=== PATIENT | male | born 1965 | race Caucasian/White ===

== ENCOUNTER 2018-11-01 06:38 | Observation (INO) | payer BC ==
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
[~2018-11-01 06:38] MED LIST: Buffered Lidocaine 1% SYRIN* 1 ML/SYRINGE INTRADERM ONE; Famotidine IV* 10 MG/ML 2 ML (20 mg) IV ONE; Gabapentin CAP(*) 300 MG PO ONE; Lactated Ringers 1000 ML Bag* 1,000 ML IV SCH; celeCOXIB CAP* 200 MG PO ONE
[2018-11-01] MEDS ORDERED: Dexamethasone IV* 4 MG/ML 1 ML (4 MG) ONE (06:58)
[2018-11-01] MEDS ORDERED: Lidocaine 2% MPF* 2 ML VIAL ONE (06:58)
[2018-11-01] MEDS ORDERED: Propofol* 10 MG/ML 20 ML BTL ONE (06:58)
[2018-11-01] MEDS ORDERED: Ondansetron INJ* 2 MG/ML VIAL ONE (06:58)
[2018-11-01] MEDS ORDERED: Midazolam* 1 MG/ML 10 ML VIAL (10 MG) ONE (06:58)
[2018-11-01] MEDS ORDERED: ROPIVACAINE 5 MG/ML 30 ML BTL (0.5%) ONE (06:58)
[2018-11-01] MEDS ORDERED: Sodium Chloride 0.9%* 20 ML ONE (06:58)
[2018-11-01] MEDS ORDERED: fentaNYL* 50 MCG/ML 2 ML VIAL (100 MCG VIAL) ONE ×2 (06:58→10:00)
[2018-11-01] MEDS ORDERED: KETAMINE HCL* 50 MG/ML 10 ML VIAL ONE (06:58)
[2018-11-01] MEDS ORDERED: celeCOXIB CAP* 200 MG ONE (06:59)
[2018-11-01] MEDS ORDERED: Famotidine IV* 10 MG/ML 2 ML (20 mg) ONE (06:59)
[2018-11-01] MEDS ORDERED: Buffered Lidocaine 1% SYRIN* 1 ML/SYRINGE INTRADERM ONE (06:59)
[2018-11-01] MEDS ORDERED: ceFAZolin 2 GM in NS PREMIX(*) 2 GM/100 ML BAG IVPB ONE (06:59)
[2018-11-01] MEDS ORDERED: Gabapentin CAP(*) 300 MG ONE (06:59)
[2018-11-01] MEDS ORDERED: Tranexamic Acid 1,000 MG in NS 0.9% 50 ML IV ONE (08:00)
[2018-11-01] MEDS ORDERED: Bupivacaine 0.5%* 50 ML VIAL ONE (09:17)
[2018-11-01] MEDS ORDERED: Lidocaine 2% PF * 5 ML VIAL ONE (10:02)
[2018-11-01] MEDS ORDERED: Propofol* 500 MG/50 ML BTL ONE (10:02)
[2018-11-01] MEDS ORDERED: fentaNYL* 50 MCG/ML 5 ML VIAL (250 MCG VIAL) ONE (10:12)
[2018-11-01] MEDS ORDERED: Acetaminophen IV 1GM/100ML * 100 ML ONE (10:49)
[2018-11-01] MEDS ORDERED: Ketorolac INJ* 30 MG/ML 1 ML VIAL ONE (10:57)
[2018-11-01] MEDS ORDERED: EPHEDrine (Pressors)* 50 MG/ML VIAL ONE (11:32)
[2018-11-01] MEDS ORDERED: HYDROmorphone INJ1* 1 MG/ML SYRINGE ONE (11:33)
[2018-11-01] MEDS ORDERED: diPHENhydraMINE IV* 50 MG/ML 1 ml VIAL (BENADRYL) IV PRN (12:33)
[2018-11-01] MEDS ORDERED: oxyCODONE/Acetamin 5/325 MG* TAB PO PRN (12:33)
[2018-11-01] MEDS ORDERED: Morphine 4 MG/ML VIAL (1 ml) 4 MG/ML VIAL IV PRN (12:33)
[2018-11-01] MEDS ORDERED: Magnesium Hydroxide LIQ* 30 ML UDC PO PRN (12:33)
[2018-11-01] MEDS ORDERED: Acetaminophen TAB* 325 MG PO PRN (12:33)
[2018-11-01] MEDS ORDERED: Bisacodyl SUPP* 10 MG SUPP PR PRN (12:33)
[2018-11-01] MEDS ORDERED: Ondansetron INJ* 2 MG/ML VIAL IV PRN ×2 (12:33→12:36)
[2018-11-01] MEDS ORDERED: fentaNYL* 50 MCG/ML 2 ML VIAL (100 MCG VIAL) IV PRN (12:36)
[2018-11-01] MEDS ORDERED: HYDROmorphone INJ1* 1 MG/ML SYRINGE IV PRN (12:36)
[2018-11-01] MEDS ORDERED: Naloxone* 0.4 MG/ML 1 ML VIAL IV PRN (12:36)
[2018-11-01] MEDS ORDERED: oxyCODONE/Acetamin 5/325 MG* TAB ONE (14:21)
[2018-11-01] MEDS: oxyCODONE/Acetamin 5/325 MG* TAB PO PRN ×2 (14:24→20:21)
[2018-11-01] MEDS: Lactated Ringers 1000 ML Bag* 1,000 ML IV SCH (14:28)
--- NOTE | 2018-11-01 15:03 | PN ---
Progress Note - Progress Note Date of Service: 11/01/18 Note: Pt seen at bedside POD [address] Cardenas. Right knee pain is present but described as sore. Denies CP, SOB, dizziness, nausea. No hx DVT. Dressing CDI, thigh soft, DF/PF intact, Dp2+, sensation intact to light touch distally. On eliquis for DVT prophy.
[2018-11-01] MEDS: oxyCODONE TAB* 5 MG TAB PO PRN ×2 (16:56→22:14)
--- NOTE | 2018-11-01 17:28 | OP ---
Operative Report - Blank - Operative Report Date of Operation: 11/01/18 Note: SONDRA PINA 1965 Date of Surgery: 11/01/18 Jodi Cardenas MD Sewing Machine Operator Semiautomatic: Tor PRUITT did help throughout the procedure with preparation of the knee, wound retraction, manipulation of the knee, and wound closure. Anesthesiologist: Keon Gonzalez MD Anesthesia Type: Spinal Preoperative Diagnosis: Right severe degenerative osteoarthritis of the knee Postoperative Diagnosis: As above Procedure Performed: Right Total Knee Arthroplasty with Navio Robotic System Tourniquet time: 71 minutes Complications: None Specimen: Bone and cartilage from the right knee joint sent to pathology. Hardware Used: Cemented Bailey and Nephew total knee hardware was used - For the femur a size 6 right oxinium legion posterior stabilized femoral component, for the tibia a size 6 right singh II tibial baseplate, for the insert a size 9mm 5-6 posterior stabilized articular polyethylene insert, and for the patella a size 35 3-peg all poly patella. Brief History/Indication: SONDRA PINA was known in clinic and had a history of severe right knee pain and swelling. He failed conservative treatment with anti-inflammatories, pain pills, intra-articular injections and physical therapy. He elected to undergo right total knee arthroplasty due to continued pain and decreased quality of life. Radiographs showed severe end stage osteoarthritis of the knee with bone on bone contact. Informed consent was obtained from the patient. He understood the risks of surgery included but were not limited to: bleeding, infection, damage to nearby structures, intraoperative fracture, nerve palsy, failure of the hardware, early loosening, knee stiffness or loss of motion, anesthesia complications, stroke, heart attack , blood clot and . He wished to proceed. Intra-Operative Findings: Intraoperatively the patient was noted to have severe loss of cartilage in all 3 compartments of the knee. Description of the Procedure: SONDRA PINA was identified in the preanesthesia unit. His right knee was marked as the correct operative side. Informed consent was signed and placed in the chart. The patient was taken to the operating room and placed under anesthesia without complication. A brown catheter was placed. A tourniquet was placed on the right thigh. The right lower extremity was prepped and draped in the usual sterile fashion. Preoperative time-out was made to correctly identify the patient, side and site. Appropriate intraoperative antibiotics were given within one hour of incision. Tourniquet was inflated. A midline incision was made and carried sharply down to the extensor mechanism. A new 10 blade was used to make a standard medial parapatellar arthrotomy. The patella was subluxed laterally. Electrocautery was used to dissect soft tissue off the superomedial tibia to the midsagittal plane. The knee was flexed up. The anterior horn of the lateral meniscus and the ACL/PCL were sharply incised. A reference screw was placed in the tibia and femur medially. A drill was used to place two pins in the femur and two pins in the tibia. The navio arrays were then securely fastened to the pins. Reference points on the knee were obtained using the prompts from the navio system. The femur and tibia were both planned at size 6. The PlayyOn robotic marc was used to remove the distal femoral bone. The external rotation was set based on the navio planning. The size 6 multi- cutting jig was pinned on the distal femur. The oscillating saw was used to make the appropriate 4 chamfer cuts. The extramedullary tibial cutting guide was pinned on the proximal tibia with guidance from the navio robotic system. The preplanned cut was prepared for and the oscillating saw was used to make the proximal tibial cut perpendicular to the mechanical axis of the tibia. The bone was carefully removed. The knee was brought out into full extension. The spacer block was placed and had excellent fit with the knee in full extension. The medial and lateral ligaments were well balanced. The flexion and extension gaps were well balanced. The knee was flexed up. Lamina philanthropy officer was placed both medially and laterally. Any remaining meniscus was removed with electrocautery. Curved osteotome was used to remove any posterior osteophytes. The tibial tray and drop pj were placed and confirmed a satisfactory tibial cut. The size 6 right femoral trial was impacted onto the distal femur. This trial had excellent fit and stability. The box for the posterior stabilized implant was prepared using a box cut osteotome and a reamer. Next a tibial tray trial and 9 mm insert trial was placed. The knee was taken through a range of motion and had full extension to 130 degrees of flexion. Patellofemoral tracking was satisfactory. The patella was inverted and sized to a size 35. Three peg holes were drilled through the size 35 drill guide. The trial patella was placed and the knee was taken through a range of motion. There was satisfactory patellofemoral tracking. Final range of motion was assessed and the navio screws and pins were removed. All trials were removed. The tibia was subluxed anteriorly and sized to a size 6. The proximal tibial was prepared with a size 6 keel punch. All bony cut surfaces were irrigated with sterile saline and dried. Final implants were cemented into place starting with the tibia, followed by the femur, and last the patella. A 9 mm insert trial was placed and the knee was brought into full extension. Tourniquet was turned down and the knee was copiously irrigated with sterile saline. Electrocautery was used to obtain meticulous hemostasis. Once the cement had fully cured, the insert trial was removed. Any excess cement was removed from around the hardware and capsule. Final insert chosen was a 9 mm posterior stabilized Singh II articular insert size 5-6. Stability of the insert was checked and noted to be stable. The extensor mechanism was closed using number 1 vicryls. The rest of the incision was closed in a layered fashion using 0 and 2-0 vicryls. The skin was closed using 3-0 nylon suture. Sterile xeroform, 4x4s and webril were used to cover the incision. Joaquin wrap and cold pack were used to cover the dressings. The patients anesthesia was reversed without difficulty. He was taken to the PACU in stable condition. Intended weight-bearing will be as tolerated.
[2018-11-01] MEDS: ceFAZolin 1 GM ADVAN(*) 1 GM in NS 0.9% 50 ML* 50 ML IVPB SCH (18:08)
[2018-11-01] MEDS: Cyclobenzaprine TAB* 10 MG PO PRN (18:11)
[2018-11-01] MEDS: Magnesium Hydroxide LIQ* 30 ML UDC PO SCH (20:21)
[2018-11-01] MEDS: Docusate CAP* 100 MG PO SCH (20:21)
[2018-11-01] MEDS ORDERED: Sertraline* 100 MG TAB PO SCH (21:00)
[2018-11-01] MEDS ORDERED: Apixaban* 5 MG TAB PO SCH (21:00)
[2018-11-01] MEDS ORDERED: amLODIPine TAB* 5 MG PO SCH (21:00)
[2018-11-02] MEDS: Lactated Ringers 1000 ML Bag* 1,000 ML IV SCH (00:36)
[2018-11-02] MEDS: oxyCODONE/Acetamin 5/325 MG* TAB PO PRN ×3 (02:16→14:42)
[2018-11-02] MEDS: ceFAZolin 1 GM ADVAN(*) 1 GM in NS 0.9% 50 ML* 50 ML IVPB SCH ×2 (02:17→09:40)
[2018-11-02 05:42] LABS: Hematocrit 40 % (42-52); Hemoglobin 13.7 g/dL (14.0-18.0); Mean Platelet Volume 8.5 fL (7.4-10.4); Platelet Count 139 10^3/uL (150-450)
[2018-11-02 05:55] LABS: BUN/Creatinine Ratio 15.3 (8-20); Calcium 8.6 mg/dL (8.6-10.3); EGFR African American 138.2 (>60); EGFR Non-African American 114.2 (>60); Potassium 3.9 mmol/L (3.5-5.0)
[2018-11-02] MEDS: oxyCODONE TAB* 5 MG TAB PO PRN ×2 (06:49→11:39)
[2018-11-02] MEDS: Docusate CAP* 100 MG PO SCH (07:57)
[2018-11-02] MEDS: Cyclobenzaprine TAB* 10 MG PO PRN (07:57)
[2018-11-02] MEDS: Magnesium Hydroxide LIQ* 30 ML UDC PO SCH (07:59)
[2018-11-02] MEDS ORDERED: Vitamin THERAPEUTIC TAB PO SCH (09:00)
[2018-11-02] MEDS ORDERED: Apixaban* 5 MG TAB PO SCH (09:00)
--- NOTE | 2018-11-02 10:06 | PN ---
Progress Note - Progress Note Date of Service: 11/02/18 SOAP: Subjective: []Pt seen and examined at bedside. He is feeling very well, pain is well controlled. Denies CP, SOB, dizziness, nausea. Desires DC home today, he has already done stairs Objective: []Gen: Appears well, NAD RLE: Right knee dressing CDI, thigh soft, DF/PF intact, DP2+, sensation intact to light touch distally. Calves supple and nontender without erythema, edema or palpable cords Assessment: []POD 1 sp RTK Plan: []WBAT PT/OT eliquis 2.5 mg po BID x 30 days post op Change dressing before anticipated DC home today Vital Signs Temp 97.7 F 11/02/18 07:30 Pulse 56 11/02/18 07:30 Resp 16 11/02/18 09:40 BP 110/62 11/02/18 07:30 Pulse Ox 99 11/02/18 07:30 Intake & Output 11/01/18 11/02/18 11/02/18 18:59 06:59 18:59 Intake Total 2490 2260 60 Output Total 2125 1650 Balance 365 610 60 Weight 174 lb Intake: IV Fluids 2200 990 LR 2200 990 IVPB 110 60 ABX - CEFAZOLIN 110 60 Oral 290 1160 Output: Byrd 2125 1650 Laboratory Last Values Hgb 13.7 g/dL (14.0-18.0) L 11/02/18 05:29 Hct 40 % (42-52) L 11/02/18 05:29 Plt Count 139 10^3/uL (150-450) L 11/02/18 05:29 MPV 8.5 fL (7.4-10.4) 11/02/18 05:29 Sodium 140 mmol/L (135-145) 11/02/18 05:28 Potassium 3.9 mmol/L (3.5-5.0) 11/02/18 05:28 Chloride 106 mmol/L (101-111) 11/02/18 05:28 Carbon Dioxide 31 mmol/L (22-32) 11/02/18 05:28 Anion Gap 3 mmol/L (2-11) 11/02/18 05:28 BUN 11 mg/dL (6-24) 11/02/18 05:28 Creatinine 0.72 mg/dL (0.67-1.17) 11/02/18 05:28 Est GFR ( Amer) 138.2 (>60) 11/02/18 05:28 Est GFR (Non-Af Amer) 114.2 (>60) 11/02/18 05:28 BUN/Creatinine Ratio 15.3 (8-20) 11/02/18 05:28 Glucose 143 mg/dL (70-100) H 11/02/18 05:28 Calcium 8.6 mg/dL (8.6-10.3) 11/02/18 05:28
[2018-11-02 11:21] VITALS: BP 123/63
--- NOTE | 2018-11-02 14:24 | DS ---
Orthopedic Discharge Summary - Discharge Summary Date of Admission:11/01/18 Date of Discharge: 11/02/18 Date of Surgery: 11/01/18 Attending Orthopedic Provider: Dr Cardenas Pre-operative Diagnosis: Right knee osteoarthritis Operative Procedure: right total knee replacement Disposition of Patient: home Condition of Patient: stable History: SONDRA PINA is a 53 year old M with years of increasingly severe right knee pain. Patient has failed conservative management and has elected to undergo a right total knee replacement Hospital Course: SONDRA was admitted to [facility] on 11/01/18. Patient underwent a right total knee replacement without complication followed by a brief recovery in PACU and transfer to the Short Stay Surgical Unit in stable condition. Our physical therapy and occupational therapy also participated in this patients care. Post-op day 1: patient was alert and in no acute distress. Dressing was changed, incision clean, dry and intact. Operative extremity dorsiflexion and plantarflexion intact, sensation intact to light touch distally, DP2+. Patient was deemed to be medically and orthopedically stable for discharge. Physical therapy goals were met. Home Medications Medication Instructions Recorded Confirmed Type Amlodipine Besylate [Norvasc] 5 mg PO BEDTIME 10/21/18 11/01/18 History Fexofenadine (NF) [Soraya 180 180 mg PO BEDTIME 10/21/18 11/01/18 History (NF)] Sertraline HCl [Zoloft] 150 mg PO BEDTIME 10/21/18 11/01/18 History hydroCHLOROthiazide 12.5 mg PO BEDTIME 10/21/18 11/01/18 History [Hydrochlorothiazide] Acetaminophen TAB* [Tylenol TAB*] 650 mg PO Q8H PRN tab 11/02/18 Rx Apixaban* [Eliquis*] 2.5 mg PO Q12HR #60 tab 11/02/18 Rx Docusate CAP* [Colace Cap*] 100 mg PO BID PRN #90 cap 11/02/18 Rx oxyCODONE/Acetamin 5/325 MG* 1 tab PO Q4H PRN tab MDD 10 11/02/18 Rx [Percocet 5/325 TAB*] oxyCODONE/Acetamin 5/325 MG* 2 tab PO Q4H PRN #70 tab MDD 10 11/02/18 Rx [Percocet 5/325 TAB*] Discharge Instructions following Orthopedic Surgery: Activity: * Weight Bearing as tolerated * Continue physical therapy and occupational therapy exercises as shown * home physical therapy Wound care: * OK to shower on post-op day 3, no bathing, swimming, or submerging wound. * Use gentle soap, pat dry. Cover with gauze, ELISABETH wrap or tape. Call Orthopedic office for: * Increased drainage * Redness * Increased pain * Fever Go to ER with shortness of breath or chest pain. Diet: * Regular diet * Increase fluids and fiber to prevent constipation. * Continue to use stool softeners, call office if no bowel motion within 48 hours. Medications See Home Medication List in your packet for medications that you should take after discharge. DVT Prophylaxis: Eliquis Dosin.5 mg, 1 tab every 12 hours x 30 days. This medication increases bleeding tendency Pain Control: Percocet Dosin/325 mg 1-2 tabs by mouth every 4-6 hours as needed for pain. Maximum of 10 tabs per day. Hold for sedation, wean off as soon as pain allows Please note that Percocet contains Tylenol (acetaminophen). Maximum daily dose of Tylenol is 4000 mg from all sources. Antibiotics are required prior to any dental work. FOLLOW UP: Follow up with [Ronald ] Within 10-14 days, call for appointment Please call our office with any questions or concerns ([phone])
== END 2018-11-02 15:40 | disposition home or self-care (01) ==
LOC: OR 06:38 → SSU 14:04
PROVIDERS: ADMIT Orthopaedic Surgery Adult Reconstructive Orthopaedic Surgery; ATTEND Orthopaedic Surgery Adult Reconstructive Orthopaedic Surgery
DX: M17.11 Unilateral primary osteoarthritis, right knee (principal); I10 Essential (primary) hypertension; Z87.09 Personal history of other diseases of the respiratory system; Z79.899 Other long term (current) drug therapy
CPT/HCPCS: 36415; 80048; 85014; 85018; 85049; 96365; 96375; A9270-GY; G0378; J0690; J1100; J1170; J1885; J2250; J2405; J2704; J2795; J3010; J3490